=== PATIENT | female | born 1975 | race Hispanic/Latino ===

== ENCOUNTER 2017-10-04 16:15 | Emergency (ER) | payer SELFPAY | END 2017-10-04 16:47 | disposition home or self-care (01) | LOC: EDH 16:15 | DX: E88.2 Lipomatosis, not elsewhere classified (principal) | CPT/HCPCS: 99281 ==

== ENCOUNTER 2018-08-06 09:28 | Emergency (ER) | payer SELFPAY ==
[2018-08-06 09:52] LABS: BASOPHILS % (AUTO) 0.1 % (0.0-5.0); CREATININE 0.6 mg/dL (0.5-1.5); EOSINOPHILS % (AUTO) 2.6 % (0.0-8.0); HEMATOCRIT 42.2 % (36-48); LYMPHOCYTES % (AUTO) 25.2 % (21.0-51.0); MEAN CORPUSCULAR HEMOGLOBIN 29.4 pg (27.0-33.0); MEAN CORPUSCULAR HGB CONC 33.3 g/dL (32.0-36.0); MEAN CORPUSCULAR VOLUME 88.2 fL (79-99); MONOCYTES % (AUTO) 6.9 % (3.0-13.0); NEUTROPHILS % (AUTO) 65.2 % (40.0-77.0); PLATELET COUNT (AUTO) 482 K/uL (130-400); POTASSIUM 3.8 mmol/L (3.5-5.1); RED BLOOD CELL COUNT(AUTO) 4.79 MIL/uL (4.00-5.50); RED CELL DISTRIBUTION WIDTH 12.9 % (11.0-15.5); WHITE BLOOD COUNT (AUTO) 9.6 K/uL (4.8-10.8)
[2018-08-06 10:09] LABS: HCG,QUAL RESULT NEGATIVE (NEGATIVE)
[2018-08-06 10:11] LABS: APPEARANCE,URINE Clear (CLEAR); BILIRUBIN,URINE Negative (NEGATIVE); COLOR,URINE Yellow (YELLOW); GLUCOSE, URINE (UA) Negative (NEGATIVE); KETONES,URINE Negative (NEGATIVE); LEUKOCYTE ESTERASE ,URINE Negative (NEGATIVE); NITRATE,URINE Negative (NEGATIVE); OCCULT BLOOD,URINE Negative (NEGATIVE); PROTEIN,URINE Negative (NEGATIVE); UROBILINOGEN,URINE 0.2 mg/dL (0.2-1.0)
[2018-08-06 10:32] LABS: B-TYPE NATRIURETIC PEPTIDE 13 pg/mL (0-100)
[2018-08-06] MEDS ORDERED: PREDNISONE 20 MG TABLET ONE (10:38)
== END 2018-08-06 12:30 | disposition home or self-care (01) ==
LOC: EDH 09:28
DX: G51.0 Bell's palsy (principal); L73.9 Follicular disorder, unspecified; D49.7 Neoplasm of unspecified behavior of endocrine glands and other parts of nervous system
CPT/HCPCS: 36415; 70450; 80048; 81003; 81025; 82948; 83880; 85025; 93005

== ENCOUNTER 2019-01-30 13:49 | Inpatient (IN) | payer OTHER ==
[~2019-01-30] VITALS: Ht 157.5 cm; Wt 139.1 kg
[2019-01-30 14:32] LABS: BASOPHILS % (AUTO) 0.8 % (0.0-5.0); EOSINOPHILS % (AUTO) 1.9 % (0.0-8.0); HEMATOCRIT 39.7 % (36-48); LYMPHOCYTES % (AUTO) 32.9 % (21.0-51.0); MEAN CORPUSCULAR HEMOGLOBIN 29.4 pg (27.0-33.0); MEAN CORPUSCULAR HGB CONC 33.6 g/dL (32.0-36.0); MEAN CORPUSCULAR VOLUME 87.6 fL (79-99); MONOCYTES % (AUTO) 8.9 % (3.0-13.0); NEUTROPHILS % (AUTO) 55.5 % (40.0-77.0); NUCLEATED RED BLOOD CELLS 0.1 % (0.0-0.19); PLATELET COUNT (AUTO) 343 K/uL (130-400); RED BLOOD CELL COUNT(AUTO) 4.53 MIL/uL (4.00-5.50); RED CELL DISTRIBUTION WIDTH 13.1 % (11.0-15.5); WHITE BLOOD COUNT (AUTO) 6.4 K/uL (4.8-10.8)
[2019-01-30 14:49] LABS: CREATININE 0.7 mg/dL (0.5-1.5); POTASSIUM 3.7 mmol/L (3.5-5.1)
[2019-01-30 14:50] LABS: INR 0.95 (0.85-1.15); PARTIAL THROMBOPLASTIN TIME 29.9 SEC (26.3-35.5)
[2019-01-30 14:53] LABS: ALBUMIN 3.4 g/dL (3.5-5.0); BILIRUBIN,TOTAL 0.5 mg/dL (0.2-1.0); TOTAL PROTEIN, SERUM 6.9 g/dL (6.0-8.3)
[2019-01-30] MEDS ORDERED: ASPIRIN 325 MG TABLET ONE (16:45)
[2019-01-30] MEDS ORDERED: IOHEXOL 350 MG/ML 100ML INFUS..BTL IV ONE (17:03)
[2019-01-30] MEDS ORDERED: SODIUM CHLORIDE 0.9% 10 ML VIAL IVP PRN (19:45)
--- NOTE | 2019-01-30 20:20 | NUR ---
REPORT RECEIVED FROM ESTEPHANIE RODRIGUEZ.
--- NOTE | 2019-01-30 20:45 | NUR ---
PT ARRIVED TO UNIT AT THIS TIME, ACCOMPANIED BY MOTHER. PT STATES SHE IS ASYMPTOMATIC AT THE MOMENT. NO LEFT SIDED WEAKNESS. NEURO CHECK COMPLETE. PT IS ABLE TO AMBULATE. MINOR DROOPING TO LEFT SIDE OF FACE. 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 NO HOME MEDICATIONS. STATES HAS BEEN UNDER ALOT OF STRESS DUE TO HUSBANDS CRITICAL CONDITION AND LOSS OF SON. AA03. PERRLA. 3MM. PT ROOM AIR. NO SOB. NO PAIN. IV PATENT.
[2019-01-30 21:13] VITALS: BP 130/72
[2019-01-30] MEDS: FAMOTIDINE/PF 20 MG/2 ML VIAL IV SCH (21:15)
--- NOTE | 2019-01-30 22:05 | NUR ---
DR. ORANTES IN ROOM. SPEAKING TO PT.
[2019-01-30 23:02] VITALS: BP 118/47
[2019-01-31 03:24] VITALS: BP 105/71
[2019-01-31 04:09] LABS: HEMOGLOBIN A1C 6.6 % (4.0-6.0)
[2019-01-31 04:29] LABS: CHOLESTEROL 167 mg/dL (<200); HDL CHOLESTEROL 104 mg/dL (35-85); LDL DIRECT 104 mg/dL (0-99); TRIGLYCERIDES 240 mg/dL (30-200)
[2019-01-31 08:06] VITALS: BP 111/69
[2019-01-31] MEDS: ENOXAPARIN SODIUM 40 MG/0.4 ML SYRINGE SQ SCH ×2 (09:00→09:53)
[2019-01-31] MEDS: FAMOTIDINE/PF 20 MG/2 ML VIAL IV SCH ×2 (09:53→19:51)
[2019-01-31] MEDS: ASPIRIN 325 MG TABLET PO SCH (09:53)
[2019-01-31 11:10] VITALS: BP 115/70
[2019-01-31] MEDS ORDERED: CYAN250010 PO (14:47)
[2019-01-31 15:17] VITALS: BP 125/85
--- NOTE | 2019-01-31 18:57 | NUR ---
cm note met with patient and states is independent with adls and ambulatio does not see md, provided with [employer] [facility] [email or web address] and md hernandez. instructed on importance of md followup. states he will followup. Addendum: 01/31/19 at 1858 by KEKE CHAVEZ CM Amended: Links added.
[2019-01-31 19:16] VITALS: BP 117/72
--- NOTE | 2019-01-31 22:00 | NUR ---
PT STABLE. AA03. PERRLA. NO LONGER HAVING DRIFT TO THE RIGHT LEG. STATED AFTER MORNING MEDS SHE HAD THAT ISSUE, SHE REFUSED PEPCID FOR THE EVENING. PENDING TO SEE DR. FARRIS. NO ISSUES AT THIS TIME. DR. ORANTES STATED FOR MRI, HE WOULD PREFER FOR DR. FARRIS TO DECIDE IF TO ORDER ONE ACCORDINGLY.
[2019-01-31 23:02] VITALS: BP 113/72
[2019-02-01 03:23] VITALS: BP 121/54
[2019-02-01 07:47] VITALS: BP 122/70
[2019-02-01] MEDS: ASPIRIN 325 MG TABLET PO SCH (08:58)
[2019-02-01] MEDS: FAMOTIDINE/PF 20 MG/2 ML VIAL IV SCH (08:58)
[2019-02-01] MEDS: ENOXAPARIN SODIUM 40 MG/0.4 ML SYRINGE SQ SCH (08:59)
--- NOTE | 2019-02-01 09:30 | NUR ---
DYSPHAGIA EVAL COMPLETE. -S/S OF ASPIRATION. RECOMMEND REGULAR, THIN LIQUID DIET; PILLS WHOLE WITH LIQUIDS. PATIENT INFORMATION: Pt IS A 43 Y.O. FEMALE REFERRED FOR A BEDSIDE DYSPHAGIA EVALUATION SECONDARY TO R/O CVA. Pt REPORTS SHE FELT LEFT SIDED FACIAL WEAKNESS AND LEFT LOWER EXTREMITY WEAKNESS. Pt AAOX3 AND COOPERATIVE DURING THE EVALUATION. Pt CURRENTLY ADMITTED SECONDARY TO ACUTE LLE WEAKNESS AND RULE OUT CVA. Pt HAS PAST MEDICAL HISTORY SIGNIFICANT FOR CLEVELAND'S PALSY (JUL 2018), PROLACTINOMA, AND X1. EVALUATION: SWALLOW FUNCTION AND EFFICIENCY WITHIN FUNCTIONAL LIMITS. ORAL MOTOR STRENGTH, COORDINATION, AND ROM WITHIN FUNCTIONAL LIMITS. LARYNGEAL ELEVATION/EXCURSION STRONG WITH TIMELY PHARYNGEAL RESPONSE. NO OVERT SIGNS OR SYMPTOMS OF ASPIRATION PRESENT AT BEDSIDE. VOCAL QUALITY CLEAR WITH NO THROAT CLEAR OR COUGH RESPONSE PRESENT. RECOMMENDATIONS: 1. REGULAR TEXTURE, THIN LIQUID DIET; PILLS WHOLE WITH LIQUIDS. 2. COMPENSATORY STRATEGIES (PROPHYLAXIS): *SEATED AT 90 DEGREE ANGLE [id number] Addendum: 02/01/19 at [address] Amended: Links added.
--- NOTE | 2019-02-01 09:45 | NUR ---
COGNITIVE EVAL COMPLETE. COGNITIVE-LINGUISTIC ABILITIES WITHIN FUNCTIONAL LIMITS. PATIENT INFORMATION: Pt IS A 43 Y.O. FEMALE REFERRED FOR A COGNITIVE-LINGUISTIC EVALUATION SECONDARY TO POSSIBLE CVA. Pt AAOX3 AND COOPERATIVE DURING THE EVALUATION. Pt CURRENTLY ADMITTED SECONDARY TO ACUTE LLE WEAKNESS AND R/O CVA. Pt HAS A PAST MEDICAL HISTORY SIGNIFICANT FOR CLEVELAND'S PALSY (JUL 2018), PROLACTINOMA, X1. EVALUATION: EVALUATION: Pt AAOX3. Pt REQUESTS WANTS AND NEEDS INDEPENDENTLY. Pt INTELLIGIBLE AT 100% ACCURACY TO THE UNFAMILIAR LISTENER. Pt COMMUNICATING AT CONVERSATIONAL LEVEL WITH NO DEFICITS IDENTIFIED AT THIS TIME. Pt COMPLETED COGNITIVE-LINGUISTIC EVALUATION TARGETING: ORIENTATION, ATTENTION/CONCENTRATION, MEMORY (IMMEDIATE, SHORT-TERM AND LONG-TERM), PROBLEM SOLVING, LOGIC/REASONING/INFERENCE, THOUGHT ORGANIZATION, FUNCTIONAL MATH AND TELLING TIME. Pt ABLE TO COMPLETE TASKS WITH CORRECT AND TIMELY ANSWERS TO ALL SECTIONS. G-CODES SPOKEN LANGUAGE EXPRESSION: [id number] Addendum: 02/01/19 at 1218 by EMILY PASCUAL [facility] Amended: Links added.
--- NOTE | 2019-02-01 12:24 | NUR ---
LAXMI Lora recd call from pt's sister, voicing concern that pt was allowed to leave AMA and sister does not feel that pt has capacity to make this decision. Sister states pt left hospital and is on side of the road. Geno called AMARILIS Iqbal who states pt was seen by Dr Staton and was deemed able to make decisions. Geno recd call from sister again. Sister informed that pt was seen and cleared by neurologist and sister was referred to [employer] for concerns. Amarilis and CELIA informed of above.
== END 2019-02-01 11:30 | disposition left against medical advice (07) | DRG 69 ==
LOC: EDH 13:49 → EDHIP 13:50 → 2AH 20:43
PROVIDERS: ADMIT Family Medicine; ATTEND Family Medicine
DX: G45.9 Transient cerebral ischemic attack, unspecified (principal); Z68.43 Body mass index [BMI] 50.0-59.9, adult; E66.9 Obesity, unspecified; N91.2 Amenorrhea, unspecified; D35.2 Benign neoplasm of pituitary gland; Z88.8 Allergy status to other drugs, medicaments and biological substances; Z83.3 Family history of diabetes mellitus; Z82.49 Family history of ischemic heart disease and other diseases of the circulatory system
CPT/HCPCS: 36415; 70450; 70496; 70498; 76856; 80053; 80061; 82550; 82948; 83001; 83002; 83036; 84146; 84484; 85025; 85610; 85730; 92522; 92610; 93005; G0378; J1650; J3490; Q9967